=== PATIENT | female | born 1985 | race Two or more races ===

== ENCOUNTER 2019-09-30 07:45 | Day surgery (SDC) | payer OTHER | END 2019-09-30 14:20 | disposition home or self-care (01) | LOC: CIR.AMB 07:45 | DX: O34.32 Maternal care for cervical incompetence, second trimester (principal) ==

== ENCOUNTER 2020-01-21 09:53 | Outpatient (CLI) | payer OTHER | END 2020-01-21 10:49 | disposition home or self-care (01) | LOC: NST 09:53 | DX: Z34.83 Encounter for supervision of other normal pregnancy, third trimester (principal) ==